=== PATIENT | female | born 1955 | race Caucasian/White ===

== ENCOUNTER 2017-10-11 05:55 | Inpatient (IN) | payer BC, OTHER ==
[2017-10-05 10:59] VITALS: BMI 45.3
[2017-10-11] MEDS ORDERED: CEFAZOLIN 2 GM/D5W 2 GM/50 ML ML IVPB ONE (06:19)
[2017-10-11] MEDS ORDERED: TRANEXAMIC ACID 1000 MG/10 ML VIAL IVPUSH ONE (06:19)
[2017-10-11] MEDS ORDERED: CELECOXIB 200 MG CAPSULE PO ONE (06:19)
[2017-10-11] MEDS ORDERED: oxyCODONE HCL 10 MG SUSTAINED ACTING TABLET PO ONE (06:19)
[2017-10-11] MEDS ORDERED: GABAPENTIN 300 MG CAPSULE (FP) PO ONE (06:19)
[2017-10-11] MEDS ORDERED: oxyCODONE HCL 10 MG SUSTAINED ACTING TABLET ONE (06:26)
[2017-10-11] MEDS ORDERED: CELECOXIB 200 MG CAPSULE ONE (06:26)
[2017-10-11] MEDS ORDERED: GABAPENTIN 300 MG CAPSULE (FP) ONE (06:26)
[2017-10-11] MEDS ORDERED: MIDAZOLAM HCL 2 MG/2 ML SINGLE DOSE VIAL ONE ×2 (07:03→07:05)
[2017-10-11] MEDS ORDERED: BUPIVACAINE LIPOSOME/PF (EXPAREL) 266 MG/20 ML VIAL ONE (07:04)
[2017-10-11] MEDS ORDERED: BUPIVACAINE HCL/PF 2.5 MG/ML - 30 ML VIAL IJ ONE (07:04)
[2017-10-11] MEDS ORDERED: ONDANSETRON 4 MG/2 ML VIAL ONE (07:05)
[2017-10-11] MEDS ORDERED: PROPOFOL 20 ML ONE ×4 (07:05→09:23)
[2017-10-11] MEDS ORDERED: SUCCINYLCHOLINE CHLORIDE 200 MG/10 ML VIAL ONE (07:05)
[2017-10-11] MEDS ORDERED: ePHEDrine SULFATE 50 MG/1 ML AMPULE ONE (07:05)
[2017-10-11] MEDS ORDERED: DEXAMETHASONE SOD PHOSPHATE 4 MG/1 ML VIAL ONE (07:06)
[2017-10-11] MEDS ORDERED: TRANEXAMIC ACID 1000 MG/10 ML VIAL ONE (07:06)
[2017-10-11] MEDS ORDERED: ceFAZolin SODIUM 1 GM VIAL ONE (07:09)
[2017-10-11] MEDS ORDERED: VANCOMYCIN 1,000 MG VIAL (RESTRICTED TO ID ONLY) ONE (07:10)
[2017-10-11] MEDS ORDERED: PHENYLEPHRINE HCL 10 MG/1 ML SINGLE DOSE VIAL ONE (07:22)
--- NOTE | 2017-10-11 07:51 | HP ---
Satellite [facility] - Chief Complaint Chief Complaint: right knee pain - Past Medical History Allergies/Adverse Reactions: Allergies Allergy/AdvReac Type Severity Reaction Status Date / Time No Known Drug Allergies Allergy Verified 10/11/17 06:17 Cardiovascular: Yes: HTN Pulmonary: Yes: Asthma Gastrointestinal: Yes: GERD, Other (Obesity, S/P gastric banding 7 years ago.) Endocrine: Yes: Hypothyroidism - Current Medications Current Medications: Home Medications Medication Instructions Recorded Albuterol Sulfate Inhaler - 1 - 2 inh PO QID PRN 12/27/14 [Ventolin HFA Inhaler -] Levothyroxine [Synthroid -] 125 mcg PO DAILY 10/05/17 Naproxen [Naprosyn] 500 mg PO BID 10/05/17 Olmesartan Medoxomil 20 mg PO DAILY 10/05/17 Satellite Physical Exam - Physical Examination Vital Signs: Vital Signs Period Temp Pulse Resp BP Sys/Mayes Pulse Ox Last 24 Hr 97.9 F 65 18 167/79 General Appearance: Well Nourished, Well Developed, Alert & Oriented x3, Obese ENT: Clear Lung: Normal air movement Heart: Regular rate & rhythm Extremities: Other (right knee- + swelling, + ttp, decr rom, nvi xrays show grade 4 tricompartmental djd) Neurological: Intact, Alert, Oriented Satellite Impression/Plan - Impression/Plan Impression: right knee djd Operative Procedure: right caitlyn tkr Date to be Performed: 10/11/17
[2017-10-11] MEDS ORDERED: VANCOMYCIN 1,000 MG VIAL (RESTRICTED TO ID ONLY) IVPB ONE (09:17)
[2017-10-11] MEDS ORDERED: ALBUTEROL SO4 18 GM HFA INHALER IH PRN (09:54)
[2017-10-11] MEDS ORDERED: ONDANSETRON 4 MG/2 ML VIAL IVPUSH PRN ×2 (09:55→11:06)
[2017-10-11] MEDS ORDERED: MAGNESIUM HYDROX 2400MG/30ML ORAL SUSPENSION 30 ML CUP PO PRN (09:55)
[2017-10-11] MEDS ORDERED: MAG HYDROX/AL HYDROX/SIMETH 30 ML UNIT-DOSE CUP PO PRN (09:55)
--- NOTE | 2017-10-11 09:57 | OP ---
Operative Note - Note: Operative Date: 10/11/17 ([place]) Pre-Operative Diagnosis: right knee djd Operation: right caitlyn tkr Post-Operative Diagnosis: Same as Pre-op Surgeon: Ole Campos Teacher Public Health: Colby Lopez) Anesthesiologist/BOAT PULLER: Miguel Escalante Anesthesia: Spinal, Local Specimens Removed: bone fragments Estimated Blood Loss (mls): 100 Operative Report Dictated: Yes
[2017-10-11] MEDS ORDERED: LACTATED RINGERS SOLUTION 1,000 ML IV SCH (10:00)
[2017-10-11] MEDS ORDERED: PATIENT'S OWN MEDICATION (NON-FORMULARY) (Olmesartan Medoxomil [Olmesartan Medoxomil] 20 M PO SCH (10:00)
--- NOTE | 2017-10-11 10:12 | SPEC ---
DATE OF OPERATION: 10/11/2017 PREOPERATIVE DIAGNOSIS: Degenerative joint disease, right knee. POSTOPERATIVE DIAGNOSIS: Degenerative joint disease, right knee. PROCEDURE: Right total knee replacement with robotic-assisted navigation (Makoplasty). SURGICAL ATTENDING: Servando Anderson M.D. BUTTONHOLER: Adalgisa Bruner ANESTHESIA: Regional and spinal. CLOSURE: A Triathlon cemented knee system with a 3 femur, 3 tibia, 11 polyethylene, 32 patella, number 1 Vicryl fascia, 0 and 2-0 subcutaneous, 3-0 Monocryl subcuticular with skin glue for skin, 4-0 undyed Vicryl for pin sites. ESTIMATED BLOOD LOSS: 100 mL COMPLICATIONS: None. CONDITION: To recovery room in stable condition. DESCRIPTION OF OPERATIVE PROCEDURE: Patient was taken to the operating room on October 11, 2017. Regional and general anesthesia was administered by the anesthesiologist. IV Kefzol and TXA were administered by the anesthesiologist. Well-padded pneumatic tourniquet was placed on the proximal thigh. The right lower extremity was prepped and draped in the usual sterile fashion. The leg was exsanguinated with an Esmarch bandage, and tourniquet was inflated to 275 mmHg. A 12 to 15-cm longitudinal midline incision was incised while centered over the patella. The dissection was carried down to the level of the extensor mechanism with sufficient flaps made to adequately perform the procedure. A medial parapatellar arthrotomy was then performed. We made a cuff of tissue on the patella for later closure. The patella was inverted, the knee was flexed up. The fat pad was excised. The subperiosteal dissection was on the anteromedial proximal tibia around towards the direction of the MCL. The ACL and the PCL were transected and debrided. The meniscal remnants of the medial and lateral meniscus were debrided and removed. This allowed the knee to be able to "be brought forward." The checkpoints were malleted into the tibia and into the femur. Two threaded pins were drilled anteroposteriorly proximal to the knee through the previous incision, through the anterior cortex, then just engaging the posterior cortex. To these pins was assembled the femoral navigation array. One handbreadth below the tibial tubercle, 2 stab incisions were used to drill 2 threaded pins in parallel fashion into the tibia, again through the anterior cortex and just engaging the posterior cortex. To these pins was fastened the tibial arrays. The knee was then registered with the navigation device with center of rotation of the hip, medial and lateral malleoli, both checkpoints, and multiple points on both the femur and the tibia to ensure excellent registration. The navigation device was directed off the "top of the bubbles" on both the femur and the tibia. The navigation passed within less than 0.5 mm to plan. The knee was then thoroughly inspected to remove all osteophytes both medially, laterally, and on the femur and the tibia, and whatever osteophytes were available for dissection. The knee was then taken to extension and to flexion, and stressed in both varus and valgus to assess flexion gaps. The virtual position of the components on the navigation device were then manipulated to optimize the position and to ensure equal gaps in both flexion and extension, and both medially and laterally. The robot was then brought into the field and was registered. The cuts were then made both on the femur and on the tibia as to plan. All osteophytes posteriorly were then removed as well. The gaps were then measured again in flexion and extension to be equal in both flexion and extension and medial and laterally. The femoral notch was then made, as we were doing a posterior stabilizing component, with the appropriate sized box. Trial reduction of the femur achieved excellent [id number] fit. A tibial baseplate of appropriate polyethylene thickness was "floated in the knee." It was ensured to be in the excellent position by navigation devices and was pinned in place. The knee was taken through a range of motion, and found to have excellent stability throughout flexion and extension. The patella was calibrated for thickness and osteotomized down to the appropriate level. The appropriate lollipop was used to drill the lug holes in the patella and the trial button was applied. The knee was taken through a range of motion and found to have excellent tracking of the patella, and patella from full extension to full flexion. Trial components were removed, the keel was punched and drilled, and a sclerotic bone on the tibia was drilled to help with cement interdigitation. The knee was thoroughly irrigated with the pulse antibiotic snowboard designer. The real components were then cemented in using monitored arrangement cement techniques with antibiotic cement, and pressurization and extension. After the cement was hardened, the knee was thoroughly inspected to remove any extra cement. The real polyethylene component was then clipped into place. Range of motion, stability, and tracking were as described earlier. The checkpoints and the pins were removed. The knee was thoroughly irrigated with antibiotic irrigation. Vancomycin powder was placed into the knee for antibiotic prophylaxis. The medial parapatellar arthrotomy was then closed using number 1 Vicryl interrupted suture. After closure of the deep layer, the knee was taken through a range of motion, and found to have excellent stability of the patella with no dislocation and no undue tension on the repair. The subcutaneous was pulse antibiotic irrigated, and was then closed with 2-0 Vicryl, 3-0 Monocryl subcuticular with the skin glue for the skin. The distal tibial pin site was irrigated thoroughly as well and then closed with 4-0 undyed Vicryl. A sterile Aquacel dressing was applied, followed by a Sosa dressing. Tourniquet was deflated. Total tourniquet time was approximately 75 minutes. No complications. Patient was awakened from anesthesia and transferred to recovery room in stable condition. Postoperative x-rays revealed excellent position of the components. Ayush [id number]
[2017-10-11] MEDS ORDERED: PROMETHAZINE HCL 25 MG/1 ML VIAL IVPUSH PRN (11:06)
[2017-10-11] MEDS ORDERED: oxyCODONE HCL 5 MG TABLET PO PRN (11:06)
[2017-10-11] MEDS ORDERED: ACETAMINOPHEN 325 MG TABLET (FP) PO SCH (12:15)
[2017-10-11] MEDS: ACETAMINOPHEN 325 MG TABLET (FP) PO SCH ×2 (12:45→19:50)
[2017-10-11] MEDS: CEFAZOLIN 2 GM/D5W 2 GM/50 ML ML IVPB SCH ×2 (15:45→23:05)
[2017-10-11] MEDS: oxyCODONE HCL 5 MG TABLET PO PRN ×3 (15:45→23:04)
[2017-10-11] MEDS: SENNOSIDES/DOCUSATE COMBO (SENNA PLUS) TABLET (UD) PO SCH (21:30)
[2017-10-11] MEDS: GABAPENTIN 300 MG CAPSULE (FP) PO SCH (21:31)
[2017-10-11] MEDS: oxyCODONE HCL 10 MG SUSTAINED ACTING TABLET PO SCH (21:31)
[2017-10-12] MEDS: ACETAMINOPHEN 325 MG TABLET (FP) PO SCH ×4 (04:15→22:08)
[2017-10-12] MEDS: LEVOTHYROXINE NA 125 MCG TABLET (FP) PO SCH (06:47)
--- NOTE | 2017-10-12 08:16 | PN ---
Progress Note (short form) - Note Progress Note: Ortho Pt seen and examined s/p right caitlyn tkr pod #1 Selected Entries 10/12/17 06:00 Temperature 98.0 F Pulse Rate 69 Respiratory 19 Rate Blood Pressure 166/80 dressing c/d/i, calf soft, nt rom 0-40, nvi cbc pending a/p PT dvt ppx pain control d/c home tomorrow if stable
[2017-10-12 08:49] LABS: HEMATOCRIT 34.4 % (32.4-45.2); HEMOGLOBIN 11.7 GM/dl (10.7-15.3); MCH 29.8 pg (25.7-33.7); MCHC 34.1 g/dl (32.0-36.0); MEAN CELL VOLUME 87.3 fl (80-96); MEAN PLT VOLUME 10.6 fl (7.5-11.1); PLATELET COUNT 191 K/MM3 (134-434); RBC 3.94 M/mm3 (3.60-5.2); RDW 14.2 % (11.6-15.6); WHITE BLOOD COUNT 14.8 K/mm3 (4.0-10.8)
[2017-10-12] MEDS: ASPIRIN 325 MG TABLET PO SCH (08:54)
[2017-10-12] MEDS: GABAPENTIN 300 MG CAPSULE (FP) PO SCH ×2 (09:55→22:09)
[2017-10-12] MEDS: PANTOPRAZOLE 40 MG TABLET (FP) PO SCH ×2 (09:55→10:00)
[2017-10-12] MEDS: SENNOSIDES/DOCUSATE COMBO (SENNA PLUS) TABLET (UD) PO SCH ×2 (09:55→22:08)
[2017-10-12] MEDS: oxyCODONE HCL 5 MG TABLET PO PRN ×2 (09:56→22:10)
[2017-10-12] MEDS: VALSARTAN 160 MG TABLET (UD) PO SCH (09:56)
[2017-10-12] MEDS: MULTIVITAMINS (DAILY MVI) TABLET (FP) PO SCH (09:56)
[2017-10-12] MEDS: oxyCODONE HCL 10 MG SUSTAINED ACTING TABLET PO SCH ×2 (09:57→22:09)
[2017-10-12] MEDS ORDERED: morphine CARPU-JECT 2 MG/1 ML DISP.SYRIN IVPUSH PRN (10:52)
--- NOTE | 2017-10-12 11:43 | PN ---
Progress Note, Physician Chief Complaint: s/p Right Total knee replacement with ROSS History of Present Illness: under spinal anesthesia with adductor canal and popliteal nerve block for post op pain control - Current Medication List Current Medications: Active Medications Acetaminophen (Tylenol -) 650 mg PO Q6H [facility] Stop: 10/14/17 19:59 Last Admin: 10/12/17 08:55 Dose: 650 mg Al Hydroxide/Mg Hydroxide (Mylanta Oral Suspension -) 30 ml PO Q4H PRN PRN Reason: DYSPEPSIA Albuterol Sulfate (Ventolin Hfa Inhaler -) 1 - 2 puff IH QID PRN PRN Reason: ASTHMA Aspirin (Asa -) 325 mg PO DAILY@0800 [facility] Last Admin: 10/12/17 08:54 Dose: 325 mg Gabapentin (Neurontin -) 300 mg PO BID [facility] Last Admin: 10/12/17 09:55 Dose: 300 mg Levothyroxine Sodium (Synthroid -) 125 mcg PO DAILY@0700 [facility] Last Admin: 10/12/17 06:47 Dose: 125 mcg Magnesium Hydroxide (Milk Of Magnesia -) 30 ml PO PRN PRN PRN Reason: CONSTIPATION Morphine Sulfate (Morphine Injection -) 2 mg IVPUSH Q4H PRN PRN Reason: PAIN LEVEL 6-10 Multivitamins/Minerals/Vitamin C (Tab-A-Vit -) 1 tab PO DAILY [facility] Last Admin: 10/12/17 09:56 Dose: 1 tab Ondansetron HCl (Zofran Injection) 4 mg IVPUSH Q6H PRN PRN Reason: NAUSEA Oxycodone HCl (Roxicodone -) 10 mg PO Q3H PRN PRN Reason: PAIN LEVEL 6-10 Last Admin: 10/12/17 09:56 Dose: 10 mg Oxycodone HCl (Roxicodone -) 5 mg PO Q3H PRN PRN Reason: PAIN LEVEL 1-5 Last Admin: 10/12/17 06:47 Dose: 5 mg Oxycodone HCl (Oxycontin -) 10 mg PO BID [facility] Last Admin: 10/12/17 09:57 Dose: 10 mg Pantoprazole Sodium (Protonix -) 40 mg PO DAILY [facility] Last Admin: 10/12/17 09:55 Dose: 40 mg Promethazine HCl (Phenergan Injection -) 12.5 mg IVPUSH Q6H PRN PRN Reason: NAUSEA-FOR RESCUE AFTER 15 MIN Senna/Docusate Sodium (Pericolace -) 2 tablet PO BID [facility] Last Admin: 10/12/17 09:55 Dose: 2 tablet Valsartan (Diovan -) 160 mg PO DAILY [facility] Last Admin: 10/12/17 09:56 Dose: 160 mg - Objective Vital Signs: Vital Signs Temperature 98.0 F 10/12/17 06:00 Pulse Rate 69 10/12/17 06:00 Respiratory Rate 18 10/12/17 07:58 Blood Pressure 166/80 10/12/17 06:00 O2 Sat by Pulse Oximetry (%) 98 10/12/17 07:58 Constitutional: Yes: Well Nourished Cardiovascular: Yes: WNL Respiratory: Yes: WNL Gastrointestinal: Yes: WNL Labs: CBC, BMP 10/12/17 08:00 Assessment/Plan No adverse effect of anesthetic, complaining of inadequate pain control mostly in the thigh, pain in the knee is controlled, no nausea or vomiting, added morphine 2mg ivp for breakthrough pain, no further intervention by the dept of anesthesia.
--- NOTE | 2017-10-12 13:08 | SPEC ---
DATE OF OPERATION: 10/11/2017 PREOPERATIVE DIAGNOSIS: Degenerative joint disease, right knee. POSTOPERATIVE DIAGNOSIS: Degenerative joint disease, right knee. PROCEDURE: Right total knee replacement with robotic-assisted navigation (Makoplasty). SURGICAL ATTENDING: Ole Campos MD JUVENILE COUNSELOR: Adalgisa Bruner SECOND SENIOR JAVA SOFTWARE ENGINEER: Servando Anderson MD ANESTHESIA: Regional and spinal. CLOSURE: A Triathlon cemented total knee system with a 3 femur, 3 tibia, 11 polyethylene, 32 patella, number 1 Vicryl fascia, 0 and 2-0 subcutaneous, 3-0 Monocryl subcuticular with skin glue for skin, 4-0 undyed Vicryl for pin sites. ESTIMATED BLOOD LOSS: Negligible. COMPLICATIONS: None. CONDITION: To recovery room in stable condition. DESCRIPTION OF OPERATIVE PROCEDURE: Patient was taken to the operating room on October 11, 2017. Regional and general anesthesia was administered by the anesthesiologist. IV Kefzol and TXA were administered by the anesthesiologist. Well-padded pneumatic tourniquet was placed on the proximal thigh. The right lower extremity was prepped and draped in the usual sterile fashion. The leg was exsanguinated with an Esmarch bandage, and tourniquet was inflated to 275 mmHg. A 12 to 15-cm longitudinal midline incision was incised while centered over the patella. The dissection was carried down to the level of the extensor mechanism with sufficient flaps made to adequately perform the procedure. A medial parapatellar arthrotomy was then performed. We made a cuff of tissue on the patella for later closure. The patella was inverted, the knee was flexed up. The fat pad was excised. The subperiosteal dissection was on the anteromedial proximal tibia around towards the direction of the MCL. The ACL and the PCL were transected and debrided. The meniscal remnants of the medial and lateral meniscus were debrided and removed. This allowed the knee to be able to "be brought forward." The checkpoints were malleted into the tibia and into the femur. Two threaded pins were drilled anteroposteriorly proximal to the knee through the previous incision, through the anterior cortex, then just engaging the posterior cortex. To these pins was assembled the femoral navigation array. One handbreadth below the tibial tubercle, 2 stab incisions were used to drill 2 threaded pins in parallel fashion into the tibia, again through the anterior cortex and just engaging the posterior cortex. To these pins was fastened the tibial arrays. The knee was then registered with the navigation device with center of rotation of the hip, medial and lateral malleoli, both checkpoints, and multiple points on both the femur and the tibia to ensure excellent registration. The navigation device was directed off the "top of the bubbles" on both the femur and the tibia. The navigation passed within less than 0.5 mm to plan. The knee was then thoroughly inspected to remove all osteophytes both medially, laterally, and on the femur and the tibia, and whatever osteophytes were available for dissection. The knee was then taken to extension and to flexion, and stressed in both varus and valgus to assess flexion gaps. The virtual position of the components on the navigation device were then manipulated to optimize the position and to ensure equal gaps in both flexion and extension, and both medially and laterally. The robot was then brought into the field and was registered. The cuts were then made both on the femur and on the tibia as to plan. All osteophytes posteriorly were then removed as well. The gaps were then measured again in flexion and extension to be equal in both flexion and extension and medial and laterally. The femoral notch was then made, as we were doing a posterior stabilizing component, with the appropriate sized box. Trial reduction of the femur achieved excellent [id number]-[id number] fit. A tibial baseplate of appropriate polyethylene thickness was "floated in the knee." It was ensured to be in the excellent position by navigation devices and was pinned in place. The knee was taken through a range of motion, and found to have excellent stability throughout flexion and extension. The patella was calibrated for thickness and osteotomized down to the appropriate level. The appropriate lollipop was used to drill the lug holes in the patella and the trial button was applied. The knee was taken through a range of motion and found to have excellent tracking of the patella, and patella from full extension to full flexion. Trial components were removed, the keel was punched and drilled, and a sclerotic bone on the tibia was drilled to help with cement interdigitation. The knee was thoroughly irrigated with the pulse antibiotic [place] sheriff. The real components were then cemented in using monitored arrangement cement techniques with antibiotic cement, and pressurization and extension. After the cement was hardened, the knee was thoroughly inspected to remove any extra cement. The real polyethylene component was then clipped into place. Range of motion, stability, and tracking were as described earlier. The checkpoints and the pins were removed. The knee was thoroughly irrigated with antibiotic irrigation. Vancomycin powder was placed into the knee for antibiotic prophylaxis. The medial parapatellar arthrotomy was then closed using number 1 Vicryl interrupted suture. After closure of the deep layer, the knee was taken through a range of motion, and found to have excellent stability of the patella with no dislocation and no undue tension on the repair. The subcutaneous was pulse antibiotic irrigated, and was then closed with 2-0 Vicryl, 3-0 Monocryl subcuticular with the skin glue for the skin. The distal tibial pin site was irrigated thoroughly as well and then closed with 4-0 undyed Vicryl. A sterile Aquacel dressing was applied, followed by a Sosa dressing. Tourniquet was deflated. Total tourniquet time was approximately 75 minutes. No complications. Patient was awakened from anesthesia and transferred to recovery room in stable condition. Postoperative x-rays revealed excellent position of the components. Servando Anderson MD dictating for MD OLE Yañez M.D. [id number]
[2017-10-13] MEDS: ACETAMINOPHEN 325 MG TABLET (FP) PO SCH ×2 (05:21→07:56)
[2017-10-13] MEDS: oxyCODONE HCL 5 MG TABLET PO PRN (06:43)
[2017-10-13] MEDS: LEVOTHYROXINE NA 125 MCG TABLET (FP) PO SCH (06:43)
[2017-10-13 06:52] VITALS: BP 111/43; PULSE 70; TEMP 98.2
[2017-10-13] MEDS: ASPIRIN 325 MG TABLET PO SCH (07:56)
--- NOTE | 2017-10-13 08:26 | DS ---
Physical Examination Vital Signs: Vital Signs Temperature 98.2 F 10/13/17 06:19 Pulse Rate 70 10/13/17 06:19 Respiratory Rate 18 10/13/17 06:19 Blood Pressure 111/43 10/13/17 06:19 O2 Sat by Pulse Oximetry (%) 99 10/13/17 06:19 Discharge Summary Reason For Visit: OSTEOARTHRITIS Procedures: Principal: s/p left caitlyn tkr Hospital Course: admitted for elective left caitlyn tkr, uneventful post-op, stable for d/c Condition: Good - Instructions Diet, Activity, Other Instructions: Post-op Instructions-Total Knee Replacement Call the office for a follow-up appointment in 1 week - [phone] Aspirin 325mg daily for 6 weeks. Pain medication was sent into your pharmacy. Apply Graduated Compression Stockings (TEDs) to both lower extremities- remove daily for hygiene ONLY Apply Sequential Compression Device (SCDs) to both Lower extremities remove for PT and hygiene ONLY Apply cold packs to affected area for 15 minutes every 2 hours. Physical Therapist will come to your home for the first 5 days. You will be set up with outpatient PT at your first post-operative visit. Patient may ambulate as tolerated-encourage self care (at least every 2-3 hours while awake) with walker or cane Maintain Aquacel (waterproof) dressing to operative wound (will be removed by surgeon at first office visit) Shower with Aquacel dressing in place-if Aquacel integrity compromised, remove and apply dry sterile dressing and notify Orthopedist. DO NOT SHOWER unless Orthopedists approves without Aquacel dressing CONTACT THE OFFICE FOR ANY CHANGE IN YOUR CONDITION (for example-fever greater than 102 degrees, excessive bleeding from operative site, purulent drainage, severe swelling or pain) GO TO THE EMERGENCY ROOM IF THERE IS A MEDICAL EMERGENCY Knee Precautions: * Keep a rolled towel under affected heel while in bed or chair (to keep knee in extension) * Keep affected leg elevated except during mealtimes * DO NOT PLACE PILLOW UNDER AFFECTED KNEE * If you have any questions, please do not hesitate to call the office - [phone]. Referrals: Servando Anderson MD [Staff Physician] - Disposition: VNS/HOME HEALTH CARE - Home Medications Comprehensive Discharge Medication List: Ambulatory Orders Albuterol Sulfate Inhaler - [Ventolin HFA Inhaler -] 1 - 2 inh PO QID PRN Levothyroxine [Synthroid -] 125 mcg PO DAILY 10/05/17 Naproxen [Naprosyn] 500 mg PO BID 10/05/17 Olmesartan Medoxomil 20 mg PO DAILY 10/05/17 Aspirin [ASA -] 325 mg PO DAILY@0800 tablet 10/11/17 Oxycodone HCl/Acetaminophen [Percocet 5-325 mg Tablet] 1 - 2 tab PO Q6H #50 tab MDD 8 10/11/17
--- NOTE | 2017-10-13 08:26 | PN ---
Progress Note (short form) - Note Progress Note: Ortho Pt seen and examined s/p right caitlyn tkr pod #2 Selected Entries 10/13/17 06:19 Temperature 98.2 F Pulse Rate 70 Respiratory 18 Rate Blood Pressure 111/43 Laboratory Tests 10/12/17 08:00 WBC 14.8 H Hgb 11.7 D Hct 34.4 Plt Count 191 dressing c/d/i, calf soft, nt rom 0-40, nvi a/p PT dvt ppx pain control d/c home today f/u in 1 week
[2017-10-13 08:28] LABS: HEMATOCRIT 32.1 % (32.4-45.2); HEMOGLOBIN 11.1 GM/dl (10.7-15.3); MCH 30.5 pg (25.7-33.7); MCHC 34.8 g/dl (32.0-36.0); MEAN CELL VOLUME 87.9 fl (80-96); MEAN PLT VOLUME 10.7 fl (7.5-11.1); PLATELET COUNT 158 K/MM3 (134-434); RBC 3.65 M/mm3 (3.60-5.2); RDW 14.2 % (11.6-15.6); WHITE BLOOD COUNT 14.6 K/mm3 (4.0-10.8)
[2017-10-13] MEDS: SENNOSIDES/DOCUSATE COMBO (SENNA PLUS) TABLET (UD) PO SCH (10:29)
[2017-10-13] MEDS: MULTIVITAMINS (DAILY MVI) TABLET (FP) PO SCH (10:30)
[2017-10-13] MEDS: VALSARTAN 160 MG TABLET (UD) PO SCH (10:31)
[2017-10-13] MEDS: oxyCODONE HCL 10 MG SUSTAINED ACTING TABLET PO SCH (10:31)
[2017-10-13] MEDS: PANTOPRAZOLE 40 MG TABLET (FP) PO SCH (10:31)
[2017-10-13] MEDS: GABAPENTIN 300 MG CAPSULE (FP) PO SCH (10:31)
--- NOTE | 2017-10-16 19:16 | PATH ---
Surgical Pathology Report Patient Name: CORBIN NUNN Med. Rec. #: [id number] /Age/Gender: 1955 (Age: 62) / F Account: [id number] Location: [facility] MED-SURG Taken: 10/11/2017 Received: 10/11/2017 Reported: 10/16/2017 Physicians: Ole Campos M.D. Specimen(s) Received RIGHT KNEE BONES Clinical History Right knee osteoarthritis Final Diagnosis KNEE BONES, RIGHT, TOTAL KNEE REPLACEMENT: DEGENERATIVE JOINT DISEASE. Electronically Signed Orquidea Luna M.D. Gross Description Received in formalin labeled "right knee bones," is a 10.0 x 9.5 x 1.5 cm aggregate of multiple irregular portions of bone, consistent with knee bones. There is a 2 cm in greatest dimension area of eburnation identified. The remaining articular surfaces are jensen-yellow and diffusely granular. The underlying trabecular bone is yellow and hard. Engineer Technical Staff sections are submitted in one cassette, following decalcification. /10/12/2017 [facility]10/12/2017
== END 2017-10-13 13:00 | disposition home health service (06) | DRG 470 ==
LOC: FM/S 05:55
PROVIDERS: ADMIT Orthopaedic Surgery; ATTEND Orthopaedic Surgery
PROC: 8E0YXCZ Robotic Assisted Procedure of Lower Extremity (ICD-10-PCS; 2017-10-11)
PROC: 0SRC069 Replacement of Right Knee Joint with Oxidized Zirconium on Polyethylene Synthetic Substitute, Cemented, Open Approach (ICD-10-PCS; principal; 2017-10-11 07:55)
DX: M17.11 Unilateral primary osteoarthritis, right knee (principal); Z68.42 Body mass index [BMI] 45.0-49.9, adult; I10 Essential (primary) hypertension; J45.909 Unspecified asthma, uncomplicated; K21.9 Gastro-esophageal reflux disease without esophagitis; E66.9 Obesity, unspecified; E03.9 Hypothyroidism, unspecified; Z98.84 Bariatric surgery status
CPT/HCPCS: 36415; 73560-TC-RT-FY; 85027; 88304-TC; 88311-TC; 94010; 94760; 97116-GP; 97162-GP

== ENCOUNTER 2017-10-27 17:52 | Observation (INO) | payer OTHER ==
--- NOTE | 2017-10-27 18:02 | PDOC ---
Rapid Medical Evaluation Time Seen by Provider: 10/27/17 17:58 Medical Evaluation: Allergies Allergy/AdvReac Type Severity Reaction Status Date / Time No Known Drug Allergies Allergy Verified 10/27/17 17:58 10/27/17 17:58 Pt c/o: rt tkr 2 weeks ago, leg swollen and red x 4 days, dr. castillo did surgery, no fever, no drainage Pt on brief exam: noted diffuse edema and redness Pt ordered for: cbc, comp, duplex Pt tp proceed to the ED Discharge Disposition - Diagnosis Right leg swelling - Referrals Referrals: Diego Valdivia MD [Primary Care Provider] - - Patient Instructions - Post Discharge Activity
[2017-10-27 18:28] LABS: BASO % 0.7 % (0-2.0); EOS % 2.4 % (0-4.5); HEMATOCRIT 33.1 % (32.4-45.2); HEMOGLOBIN 11.2 GM/dL (10.7-15.3); LYMPH % 35.4 % (8-40); MCH 29.7 pg (25.7-33.7); MCHC 33.7 g/dl (32.0-36.0); MEAN CELL VOLUME 88.2 fl (80-96); MEAN PLT VOLUME 9.7 fl (7.5-11.1); MONO % 9.4 % (3.8-10.2); NEUT % 52.1 % (42.8-82.8); PLATELET COUNT 323 K/MM3 (134-434); RBC 3.76 M/mm3 (3.60-5.2); RDW 14.9 % (11.6-15.6); WHITE BLOOD COUNT 9.1 K/mm3 (4.0-10.0)
[2017-10-27 19:34] LABS: ALBUMIN 3.7 g/dl (3.4-5.0); ALK PHOS 114 U/L (45-117); ANION GAP 10 (8-16); BILIRUBIN,TOTAL 0.3 mg/dL (0.2-1.0); BLOOD UREA NITROGEN 19 mg/dL (7-18); CALCIUM 9.2 mg/dL (8.5-10.1); CHLORIDE 106 mmol/L (98-107); CO2 26 mmol/L (21-32); CREATININE 0.9 mg/dL (0.55-1.02); GLUCOSE,RANDOM 116 mg/dL (74-106); POTASSIUM 3.9 mmol/L (3.5-5.1); SGOT/AST 15 U/L (15-37); SGPT/ALT 15 U/L (12-78); SODIUM 142 mmol/L (136-145); TOT PROT 7.5 g/dl (6.4-8.2)
--- NOTE | 2017-10-27 19:36 | PDOC ---
Attending Attestation - HPI HPI: 10/27/17 19:37 The patient is a 62 year old female with a significant PMH of recent right TKR ( 10/11/17), asthma, HTN, and hypothyroidism who presents to the emergency department with RLE swelling and erythema beginning approximately 4 days ago. The patient states Dr. Anderson conducted the TKR. She reports being in physical therapy and being told by her therapist to present to the ED for evaluation. The patient denies fevers or chills. She denies drainage or discharge. Allergies: NKDA PCP: Dr. Valdivia Ortho: Dr. Anderson <Vicente Archuleta - Last Filed: 10/27/17 19:37> - Resident Resident Name: Mo Silva - ED Attending Attestation I have performed the following: I have examined & evaluated the patient, The case was reviewed & discussed with the resident, I agree w/resident's findings & plan, Exceptions are as noted - Physicial Exam PE: 10/27/17 22:06 *Physical Exam General Appearance: Yes: Appropriately Dressed. No: Apparent Distress, Intoxicated HEENT: positive: EOMI, DES, Normal ENT Inspection, Normal Voice, TMs Normal, Pharynx Normal. negative: Pale Conjunctivae, Photophobia, Scleral Icterus (R), Scleral Icterus (L) Neck: positive: Trachea midline, Normal Thyroid, Supple. negative: Tender, Rigid, Carotid bruit, Stridor, Lymphadenopathy (R), Lymphadenopathy (L), Thyromegaly Respiratory/Chest: positive: Lungs Clear, Normal Breath Sounds. negative: Chest Tender, Respiratory Distress, Accessory Muscle Use, Labored Respiration, RES, Crackles, Rales, Rhonchi, Stridor, Wheezing, Dullness Cardiovascular: positive: Regular Rhythm, Regular Rate, S1, S2. negative: Edema , JVD, Murmur, Bradycardia, Tachycardia Vascular Pulses: Dorsalis-Pedis (R): 2+, Doralis-Pedis (L): 2+ Gastrointestinal/Abdominal: positive: Normal Bowel Sounds, Flat, Soft. negative : Tender, Organomegaly, Pulsatile Mass, Increased Bowel Sounds, Decreased BS, Distended, Guarding, Rebound, Hernia, Hepatomegaly, Spleenomegaly Lymphatic: negative: Adenopathy, Tenderness Musculoskeletal: positive: Normal Inspection. negative: CVA Tenderness, Decreased Range of Motion Extremity: positive: Normal Capillary Refill, Normal Inspection, Normal Range of Motion, Pelvis Stable. right knee surgical wound midline erythematous Integumentary: positive: Normal Color, Dry, Warm. negative: Cyanotic, Erythema , Jaundice, Rash Neurologic: positive: quality assurance calibrator II-XII NML intact, Fully Oriented, Alert, Normal Mood/ Affect, Motor Strength 5/5. negative: EOM Palsy, Facial Droop, Sensory Deficit - Medical Decision Making 10/27/17 22:08 Pt to be admitted for IV Abx. <Sarmad Mayers - Last Filed: 10/27/17 22:08>
[2017-10-27] MEDS ORDERED: VANCOMYCIN 1,000 MG in DEXTROSE 5%-WATER - 250 ML IVPB ONE (19:47)
--- NOTE | 2017-10-27 19:47 | PDOC ---
History of Present Illness - General Chief Complaint: Edema Stated Complaint: PCP SENT/RT LEG PAIN Time Seen by Provider: 10/27/17 17:58 History Source: Patient Exam Limitations: No Limitations - History of Present Illness Initial Comments: 10/27/17 19:41 Patient is a 62F with history of HTN, hypothyroidism total knee replacement on , cholecystectomy here today complaining of leg erythema and swelling. Patient states that she was sent to the ED by her physical therapist due to erythema and swelling in her right leg. Patient states that there was been increasing warmth and erythema around the wound for the past three days. Denies fevers, chills, nausea, vomiting. Denies history of blood clots. Denies chest pain and shortness of breath. Past History - Past Medical History Allergies/Adverse Reactions: Allergies Allergy/AdvReac Type Severity Reaction Status Date / Time No Known Drug Allergies Allergy Verified 10/27/17 17:58 Home Medications: Ambulatory Orders Albuterol Sulfate Inhaler - [Ventolin HFA Inhaler -] 1 - 2 inh PO QID PRN Levothyroxine [Synthroid -] 125 mcg PO DAILY 10/05/17 Aspirin [ASA -] 325 mg PO DAILY@0800 tablet 10/11/17 Oxycodone HCl/Acetaminophen [Percocet 5-325 mg Tablet] 1 - 2 tab PO Q6H #50 tab MDD 8 10/11/17 Anemia: No Asthma: Yes (DX CHILD) Cancer: No Cardiac Disorders: No CVA: No COPD: No CHF: No Dementia: No Diabetes: No GI Disorders: Yes (GERD, ULCERS) Disorders: No HTN: Yes (DX 2011-NOW OFF MEDS) Hypercholesterolemia: No Liver Disease: No Seizures: No Thyroid Disease: Yes (HYPOTHYROIDISM- DX 2004) - Surgical History Abdominal Surgery: Yes (LAP BAND-2002) Appendectomy: No Cardiac Surgery: No Cholecystectomy: Yes (OPEN-1974) Lung Surgery: No Neurologic Surgery: No Orthopedic Surgery: Yes (RIGHT KNEE ARTHROSOCPY-1999) - Suicide/Smoking/Psychosocial Hx Smoking Status: No Smoking History: Never smoked Have you smoked in the past 12 months: No Number of Cigarettes Smoked Daily: 0 Hx Alcohol Use: No Drug/Substance Use Hx: No Substance Use Type: None Hx Substance Use Treatment: No Review of Systems - Review of Systems Comments:: 10/27/17 19:52 GENERAL/CONSTITUTIONAL: No fever or chills. HEAD, EYES, EARS, NOSE AND THROAT: No change in vision. No sore throat. CARDIOVASCULAR: No chest pain or shortness of breath RESPIRATORY: No cough, wheezing, or hemoptysis. GASTROINTESTINAL: No nausea, vomiting, diarrhea or constipation. GENITOURINARY: No dysuria, frequency, or change in urination. MUSCULOSKELETAL: Positive for right knee pain and swelling. SKIN: Erythema and warmth around leg wound NEUROLOGIC: No headache, vertigo, loss of consciousness, or change in strength/ sensation. ENDOCRINE: No increased thirst. No abnormal weight change HEMATOLOGIC/LYMPHATIC: No anemia, easy bleeding, or history of blood clots. ALLERGIC/IMMUNOLOGIC: No hives or skin allergy. *Physical Exam - Vital Signs Last Vital Signs Temp Pulse Resp BP Pulse Ox 98.4 F 75 24 146/78 95 10/27/17 17:58 10/27/17 17:58 10/27/17 17:58 10/27/17 17:58 10/27/17 17:58 - Physical Exam Comments: 10/27/17 19:54 GENERAL: Awake, alert, and fully oriented, in no acute distress R LEG: Linear surgical wound with surrounding erythema. No discharge or obvious dehiscence. HEAD: No signs of trauma, normocephalic, atraumatic EYES: PERRLA, EOMI, sclera anicteric, conjunctiva clear ENT: Auricles normal inspection, hearing grossly normal, nares patent, oropharynx clear without exudates. Moist mucosa NECK: Normal ROM, supple, no lymphadenopathy, JVD, or masses LUNGS: No distress, speaks full sentences, clear to auscultation bilaterally HEART: Regular rate and rhythm, normal S1 and S2, no murmurs, rubs or gallops, peripheral pulses normal and equal bilaterally. NEUROLOGICAL: Cranial nerves II through XII grossly intact. Normal speech, no focal sensorimotor deficits SKIN: Warm, Dry, normal turgor, no rashes or lesions noted. ED Treatment Course - LABORATORY CBC & Chemistry Diagram: 10/27/17 18:15 10/27/17 18:15 - ADDITIONAL ORDERS Additional order review: Laboratory Results 10/27/17 18:15 Sodium 142 Potassium 3.9 Chloride 106 Carbon Dioxide 26 Anion Gap 10 BUN 19 H Creatinine 0.9 Creat Clearance w eGFR > 60 Random Glucose 116 H Calcium 9.2 Total Bilirubin 0.3 AST 15 ALT 15 Alkaline Phosphatase 114 Total Protein 7.5 Albumin 3.7 10/27/17 18:15 RBC 3.76 MCV 88.2 MCHC 33.7 RDW 14.9 MPV 9.7 Neutrophils % 52.1 D Lymphocytes % 35.4 D Monocytes % 9.4 Eosinophils % 2.4 D Basophils % 0.7 D Medical Decision Making - Medical Decision Making 10/27/17 19:55 Patient is a 62F with history of HTN, TKR, cholecystitis, and hypothyroidism here today with leg edema and erythema. Vital signs stable and normal. DDx is weighted towards DVT and wound cellulitis. DVT US shows no clot. No white count on labs. Dr Anderson notified. Dr Valdivia accepted for admission. Patient admitted through [facility]. *DC/Admit/Observation/Transfer Diagnosis at time of Disposition: Wound cellulitis - Discharge Dispostion Condition at time of disposition: Stable Decision to Admit order: Yes - Referrals Referrals: Diego Valdivia MD [Primary Care Provider] - - Patient Instructions - Post Discharge Activity
[2017-10-27] MEDS ORDERED: CEFEPIME HCL/D5W 2 GM/50 ML BAG IVPB ONE (19:57)
[2017-10-27] MEDS ORDERED: VANCOMYCIN 1 GRAM (PRE-DOCKED) 1,000 MG/250 ML BAG IVPB ONE (20:03)
[2017-10-27] MEDS ORDERED: CEFEPIME 2 GM/100 ML BAG IVPB ONE (20:04)
--- NOTE | 2017-10-27 21:26 | HP ---
CHIEF COMPLAINT: right knee redness and swelling PCP: Shea HISTORY OF PRESENT ILLNESS: This is a 62 year old female with a past medical history significant for R TKR who presented to the ED with swelling and redness to LRLE. Pt states the redness started 3 days ago and she has not been able to wear her MICHELLE stocking as it no longer fits. ER course was notable for: (1) US neg for DVT Recent Travel: pt denies PAST MEDICAL HISTORY: HTN (off meds), hyopthyroid, asthma, GERD PAST SURGICAL HISTORY: R TKR 10/11/17 R knee arthroscopy 1999 choecystectomy lap band 2002 Social History: Smoking: pt denies Alcohol: rarely, last drank 6 mo ago Drugs: pt denies Family History: mother alive and well father s/p heart valve replacement sister with leukemia Allergies No Known Drug Allergies Allergy (Verified 10/27/17 17:58) HOME MEDICATIONS: 3 Medication Instructions Recorded Albuterol Sulfate Inhaler - 1 - 2 inh PO QID PRN 12/27/14 [Ventolin HFA Inhaler -] Levothyroxine [Synthroid -] 125 mcg PO DAILY 10/05/17 Aspirin [ASA -] 325 mg PO DAILY@0800 tablet 10/11/17 Oxycodone HCl/Acetaminophen 1 - 2 tab PO Q6H #50 tab MDD 8 10/11/17 [Percocet 5-325 mg Tablet] REVIEW OF SYSTEMS CONSTITUTIONAL: Absent: fever, chills, diaphoresis, generalized weakness, malaise, loss of appetite, weight change HEENT: Absent: rhinorrhea, nasal congestion, throat pain, throat swelling, difficulty swallowing, mouth swelling, ear pain, eye pain, visual changes CARDIOVASCULAR: Absent: chest pain, syncope, palpitations, irregular heart rate, lightheadedness , peripheral edema RESPIRATORY: Absent: cough, shortness of breath, dyspnea with exertion, orthopnea, wheezing, stridor, hemoptysis GASTROINTESTINAL: Absent: abdominal pain, abdominal distension, nausea, vomiting, diarrhea, constipation, melena, hematochezia GENITOURINARY: Absent: dysuria, frequency, urgency, hesitancy, hematuria, flank pain, genital pain MUSCULOSKELETAL: Absent: myalgia, arthralgia, joint swelling, back pain, neck pain SKIN: Present: redness and swelling to LLE Absent: rash, itching, pallor HEMATOLOGIC/IMMUNOLOGIC: Absent: easy bleeding, easy bruising, lymphadenopathy, frequent infections ENDOCRINE: Absent: unexplained weight gain, unexplained weight loss, heat intolerance, cold intolerance NEUROLOGIC: Absent: headache, focal weakness or paresthesias, dizziness, unsteady gait, seizure, mental status changes, bladder or bowel incontinence PSYCHIATRIC: Absent: anxiety, depression, suicidal or homicidal ideation, hallucinations. PHYSICAL EXAMINATION Vital Signs - 24 hr 3 10/27/17 17:58 Temperature 98.4 F Pulse Rate 75 Respiratory 24 Rate Blood Pressure 146/78 O2 Sat by Pulse 95 Oximetry (%) GENERAL: Awake, alert, and fully oriented, in no acute distress. HEAD: Normal with no signs of trauma. EYES: Pupils equal, round and reactive to light, extraocular movements intact, sclera anicteric, conjunctiva clear. No lid lag. EARS, NOSE, THROAT: Ears normal, nares patent, oropharynx clear without exudates. Moist mucous membranes. NECK: Normal range of motion, supple without lymphadenopathy, JVD, or masses. LUNGS: Breath sounds equal, clear to auscultation bilaterally. No wheezes, and no crackles. No accessory muscle use. HEART: Regular rate and rhythm, normal S1 and S2 without murmur, rub or gallop. ABDOMEN: Soft, nontender, not distended, normoactive bowel sounds, no guarding, no rebound, no masses. No hepatomegaly or splenomegaly. MUSCULOSKELETAL: Normal range of motion at all joints. No bony deformities or tenderness. No CVA tenderness. UPPER EXTREMITIES: 2+ pulses, warm, well-perfused. No cyanosis. No clubbing. No peripheral edema. LOWER EXTREMITIES: 2+ pulses, warm, well-perfused. No calf tenderness. No peripheral edema left. RLE with redness surrounding incision and to mckeon. Right medial calf with 1+ edema NEUROLOGICAL: Cranial nerves II-XII intact. Normal speech. Gait not observed PSYCHIATRIC: Cooperative. Good eye contact. Appropriate mood and affect. SKIN: Warm, dry, normal turgor, no rashes or lesions noted, normal capillary refill. Laboratory Results - last 24 hr 3 10/27/17 10/27/17 18:15 18:15 WBC 9.1 D RBC 3.76 Hgb 11.2 Hct 33.1 MCV 88.2 MCH 29.7 MCHC 33.7 RDW 14.9 Plt Count 323 D MPV 9.7 Neutrophils % 52.1 D Lymphocytes % 35.4 D Monocytes % 9.4 Eosinophils % 2.4 D Basophils % 0.7 D Sodium 142 Potassium 3.9 Chloride 106 Carbon Dioxide 26 Anion Gap 10 BUN 19 H Creatinine 0.9 Creat Clearance w eGFR > 60 Random Glucose 116 H Calcium 9.2 Total Bilirubin 0.3 AST 15 ALT 15 Alkaline Phosphatase 114 Total Protein 7.5 Albumin 3.7 Radiology Reports CXR Impression: No definite interval change from 10/03/2014 chest x-ray. No evidence of acute infiltrate or pleural effusion. Reported By: Seble Bui DO 10/27/172137 Duplex venous L leg IMPRESSION: No evidence of right lower extremity deep vein thrombosis, as above. Reported By: Seble Bui DO 10/27/171926 ASSESSMENT/PLAN: 62yF with PMH HTN, hypothyroid, asthma, GERD presented to the ED with right lower leg erythema and swelling. cellulitis RLE - given vanc and cefepime - ID consult - ortho consult, r/o septic joint in fresh post op pt. - follow blood cultures - monitor CBC HTN - cont to monitor off meds for now, BP slightly elevated hypothyroid - cont synthroid asthma - asymptomatic at present, cont proventil HFA PRN DVT PPX - heparin 5000u BID FEN - tolerating po - BMP boo - low sodium diet as tolerated Dispo: pt requires further inpatient management of emergent condition. Visit type - Emergency Visit Emergency Visit: Yes ED Registration Date: 10/27/17 Care time: The patient presented to the Emergency Department on the above date and was hospitalized for further evaluation of their emergent condition. - New Patient This patient is new to me today: Yes Date on this admission: 10/27/17 - Critical Care Critical Care patient: No Hospitalist Screening - Colonoscopy Questionnaire Colonoscopy Questionnaire: Colonoscopy Questionnaire - Patient: 50 - 75 years old and never had a screening colonoscopy: Unknown History of colon or rectal polyps, or CA: No History of IBD, Crohn's disease or UC: No History of abdominal radiation therapy as a child: No - Relative: 1 with colon or rectal CA, or polyps at age 60 or younger: No Colon or rectal CA diagnosed at age 45 or younger: No Multiple relatives with colon or rectal CA: No - Outcome: Screening Result: Negative Screen
[2017-10-27] MEDS ORDERED: ALBUTEROL SO4 18 GM HFA INHALER IH PRN (21:28)
[2017-10-27] MEDS ORDERED: oxyCODONE HCL 5 MG TABLET PO PRN (21:35)
[2017-10-27] MEDS ORDERED: ACETAMINOPHEN 325 MG TABLET (FP) PO PRN (21:36)
[2017-10-28 02:13] VITALS: BMI 46.8
[2017-10-28] MEDS ORDERED: LEVOTHYROXINE NA 125 MCG TABLET (FP) PO SCH (07:00)
[2017-10-28] MEDS ORDERED: ASPIRIN 325 MG TABLET PO SCH (08:00)
--- NOTE | 2017-10-28 08:54 | CONSULT ---
Consult - text type - Consultation Consultation Note: FULL CONSULT DICTATED IMP: NORMAL POST TKR KNEE PAIN AND SWELLING PLAN: DC TO HOME WITH NO ABX, CONTINUE PT, F/U OUTPATIENT
[2017-10-28 08:55] LABS: BASO % 0.9 % (0-2.0); EOS % 3.3 % (0-4.5); HEMATOCRIT 29.6 % (32.4-45.2); HEMOGLOBIN 9.8 GM/dL (10.7-15.3); LYMPH % 39.3 % (8-40); MCH 29.2 pg (25.7-33.7); MCHC 33.2 g/dl (32.0-36.0); MEAN CELL VOLUME 87.9 fl (80-96); MEAN PLT VOLUME 9.8 fl (7.5-11.1); MONO % 11.1 % (3.8-10.2); NEUT % 45.4 % (42.8-82.8); PLATELET COUNT 264 K/MM3 (134-434); RBC 3.37 M/mm3 (3.60-5.2); RDW 15.1 % (11.6-15.6); WHITE BLOOD COUNT 7.2 K/mm3 (4.0-10.0)
[2017-10-28 09:22] LABS: ANION GAP 6 (8-16); BLOOD UREA NITROGEN 16 mg/dL (7-18); CALCIUM 8.2 mg/dL (8.5-10.1); CHLORIDE 109 mmol/L (98-107); CO2 28 mmol/L (21-32); CREATININE 0.7 mg/dL (0.55-1.02); GLUCOSE,RANDOM 81 mg/dL (74-106); MAGNESIUM 2.3 mg/dL (1.8-2.4); PHOSPHOROUS 3.6 mg/dL (2.5-4.9); POTASSIUM 4.2 mmol/L (3.5-5.1); SODIUM 143 mmol/L (136-145)
--- NOTE | 2017-10-28 09:38 | EKG ---
Test Reason : Blood Pressure : / mmHG Vent. Rate : 064 BPM Atrial Rate : 064 BPM P-R Int : 000 ms QRS Dur : 076 ms QT Int : 422 ms P-R-T Axes : -23 034 025 degrees QTc Int : 435 ms NORMAL SINUS RHYTHM NORMAL ECG WHEN COMPARED WITH ECG OF 15-JUN-2012 18:49, NO SIGNIFICANT CHANGE WAS FOUND Confirmed by JEREMÍAS ORANTES MD ([id number]) on 10/28/2017 9:38:23 AM Referred By: Confirmed By:JEREMÍAS ORANTES MD
--- NOTE | 2017-10-28 09:53 | CONS ---
ORTHOPEDIC CONSULTATION/[facility] DATE OF CONSULTATION: 10/28/2017 The patient is a 62-year-old female well known to me, status post right total knee replacement by me approximately 3 weeks ago. The physical therapist was examining the patient and thought the patient may have an infection or a clot and was sent to the emergency room at [facility]. Medical doctor was consulted and recommended that the patient be admitted to the hospital. On physical exam, the patient's incision is clean and dry. Slight erythema at the edges which is normal at this period of time. Postoperative intervention range of motion is 0 to 80 degrees . Calves are soft and nontender. Negative Homans sign and otherwise neurovascularly intact. A duplex that was done showed no evidence of a DVT. Systemic cell count revealed no increase of white blood cell count. IMPRESSION: Physiological examination of the patient and a normal postoperative right total knee replacement. PLAN: The patient can be discharged. No necessity for antibiotics. She should continue physical therapy and follow up in my office. ILENE GARCIA M.D. [id number]
[2017-10-28] MEDS ORDERED: HEPARIN NA (PORCINE) 5,000 UNITS/ML 1ML VIAL SQ SCH (10:00)
--- NOTE | 2017-10-28 10:13 | CON.ID ---
Consult Consult Specialty:: Infectious disease Referred by:: Erika Madrigal Reason for Consultation:: possible RT TKR infection - History of Present Illness Chief Complaint: RIght knee pain, erythema and warmth History of Present Illness: The patient is a 62 yo f w/ PMH HTN, hypothyroidism who underwent RT TKR on who presented to the ED c/o a 3 day hx of swelling, redness and warmth to her right knee. The patient was previously healing well when she noticed that her knee appeared more erythematous than it was before. The patient also endorses b/l leg swelling, worse on the right. Patient denies increased pain or trauma to the area. Patient denies any fevers, but does endorse shaking chills over the last 2 days. - History Source History Provided By: Patient Limitations to Obtaining History: No Limitations - Past Medical History Cardio/Vascular: Yes: HTN Pulmonary: Yes: Asthma Gastrointestinal: Yes: GERD, Other (Obesity, S/P gastric banding 7 years ago.) Endocrine: Yes: Hypothyroidism - Past Surgical History Past Surgical History: Yes: Bariatric Surgery (Gastric banding) - Alcohol/Substance Use Hx Alcohol Use: No - Smoking History Smoking history: Never smoked Have you smoked in the past 12 months: No Aproximately how many cigarettes per day: 0 Home Medications - Allergies Allergies/Adverse Reactions: Allergies Allergy/AdvReac Type Severity Reaction Status Date / Time No Known Drug Allergies Allergy Verified 10/27/17 17:58 - Home Medications Home Medications: Ambulatory Orders Albuterol Sulfate Inhaler - [Ventolin HFA Inhaler -] 1 - 2 inh PO QID PRN Levothyroxine [Synthroid -] 125 mcg PO DAILY 10/05/17 Aspirin [ASA -] 325 mg PO DAILY@0800 tablet 10/11/17 Oxycodone HCl/Acetaminophen [Percocet 5-325 mg Tablet] 1 - 2 tab PO Q6H #50 tab MDD 8 10/11/17 Review of Systems - Review of Systems Constitutional: reports: Chills. denies: Fever, Weakness Cardiovascular: reports: Edema. denies: Chest Pain, Palpitations, Shortness of Breath Gastrointestinal: reports: Constipation. denies: Abdominal Pain, Diarrhea Musculoskeletal: denies: Decreased ROM, Joint Pain Integumentary: reports: Erythema, Incision Physical Exam Vital Signs: Vital Signs Temperature 97.9 F 10/28/17 05:26 Pulse Rate 60 10/28/17 05:26 Respiratory Rate 20 10/28/17 05:26 Blood Pressure 126/63 10/28/17 05:26 O2 Sat by Pulse Oximetry (%) 95 10/28/17 05:26 Constitutional: Yes: Well Nourished, No Distress, Calm Cardiovascular: Yes: Regular Rate and Rhythm, S1, S2. No: JVD, Gallop, Murmur, Rub Respiratory: Yes: Regular, CTA Bilaterally Gastrointestinal: Yes: Normal Bowel Sounds, Soft. No: Distention, Tenderness Extremities: Yes: Other (right knee reveals a surgical scar which appears to be healing well. Along the distal 1/3 of the scare, there is erythema and a small amount of swelling on either side of the surgical wound. No confluence or drainage seen or expressed. Patient has full range of motion of the joint. Joint is nontender.) Edema: Yes Edema: LLE: 2+, RLE: 2+ Integumentary: Yes: Erythema, Incision Wound/Incision: Yes: Clean/Dry, Well Approximated, Open to air, Reddened. No: Draining Neurological: Yes: Alert, Oriented Psychiatric: Yes: Alert, Oriented Labs: CBC, BMP 10/28/17 07:45 10/28/17 07:45 Imaging - Results Chest X-ray: Report Reviewed, Image Reviewed Assessment/Plan The patient is a 62 yo f w/ PMH HTN, Hypothyroid, right TKR comes into the ed c/ o worsening redness of her right leg as well as shaking chills. -It is unclear whether the patient's shaking chills are 2/2 to infection as she has been afebrile and does not endorse fever at home. -Per the patient, her leg was more erythematous yesterday and has since improved after ABX last night. Erythema and swelling not impressive this AM. -Patient still has full ROM of the RLE and does not endorse increased pain at the joint. -Ortho documented that this appears to be normal post op healing. -would observe off of ABX for now and f/u BCx -Case d/w Dr. Duran.
[2017-10-28 10:59] VITALS: BP 144/72; PULSE 62; TEMP 98.1
--- NOTE | 2017-10-28 12:52 | PN ---
Teaching Attending Note Name of Resident: Gal Tanner ATTENDING PHYSICIAN STATEMENT I saw and evaluated the patient. I reviewed the resident's note and discussed the case with the resident. I agree with the resident's findings and plan as documented. SUBJECTIVE: POD #17 s/p TKR doing well- ambulating independently, less knee pain noted at PT yesterday to have some erythema at the incision and leg swelling and sent to ED no fevers, no antibiotics at home notes some chills over last 48 hours no cough or URI no n/v no diarrhea has self d/jo-ann percocet taking motrin prn no fevers OBJECTIVE: Vital Signs Period Temp Pulse Resp BP Sys/Mayes Pulse Ox Last 24 Hr 97.9 F-99.4 F 60-75 20-24 126-146/63-78 95-95 cor-rrr lungs clear abd soft,nt ext minimal erythema surrounding veritcal TKR incision no drainage +minimal edema CBC, BMP 10/28/17 07:45 10/28/17 07:45 blood cultures pending ASSESSMENT AND PLAN: no signs cellulitis or septic arthritis at this time would agree with ortho that knee findings are c/w postop not sure what to make of chills- no localizing findings normal WBC, no fevers would f/u blood cultures would check esr/crp observing off antibiotics appears appropriate at this time d/w patient Problem List - Problems (1) Wound cellulitis Code(s): L03.90 - CELLULITIS, UNSPECIFIED (2) S/P TKR (total knee replacement) Code(s): Z96.659 - PRESENCE OF UNSPECIFIED ARTIFICIAL KNEE JOINT
--- NOTE | 2017-10-28 13:40 | DS ---
Physical Examination Vital Signs: Vital Signs Temperature 98.1 F 10/28/17 09:00 Pulse Rate 62 10/28/17 09:00 Respiratory Rate 20 10/28/17 09:00 Blood Pressure 144/72 10/28/17 09:00 O2 Sat by Pulse Oximetry (%) 95 10/28/17 05:26 Constitutional: Yes: Calm Cardiovascular: Yes: Regular Rate and Rhythm, S1, S2 Respiratory: Yes: CTA Bilaterally Gastrointestinal: Yes: Normal Bowel Sounds, Soft Musculoskeletal: Yes: Other (TKR slight erythema around the incision slight edema) Neurological: Yes: Alert, Oriented Labs: CBC, BMP 10/28/17 07:45 10/28/17 07:45 Discharge Summary Reason For Visit: WOUND CELLULITIS Current Active Problems S/P TKR (total knee replacement) (Acute) Wound cellulitis (Acute) Hospital Course: CHIEF COMPLAINT: right knee redness and swelling PCP: Shea HISTORY OF PRESENT ILLNESS: This is a 62 year old female with a past medical history significant for R TKR who presented to the ED with swelling and redness to LRLE. Pt states the redness started 3 days ago and she has not been able to wear her MICHELLE stocking as it no longer fits. ER course was notable for: (1) US neg for DVT Recent Travel: pt denies PAST MEDICAL HISTORY: HTN (off meds), hyopthyroid, asthma, GERD PAST SURGICAL HISTORY: R TKR 10/11/17 R knee arthroscopy 1999 choecystectomy lap band 2002 Social History: Smoking: pt denies Alcohol: rarely, last drank 6 mo ago Drugs: pt denies Doppler of leg done no dvt seen by ortho no need for abx normal healing sen by ID no fever normal WBC count no abx at this time to go home Condition: Stable - Instructions Referrals: Diego Valdivia MD [Primary Care Provider] - Disposition: HOME - Home Medications Comprehensive Discharge Medication List: Ambulatory Orders Albuterol Sulfate Inhaler - [Ventolin HFA Inhaler -] 1 - 2 inh PO QID PRN Levothyroxine [Synthroid -] 125 mcg PO DAILY 10/05/17 Aspirin [ASA -] 325 mg PO DAILY@0800 tablet 10/11/17 Oxycodone HCl/Acetaminophen [Percocet 5-325 mg Tablet] 1 - 2 tab PO Q6H #50 tab MDD 8 10/11/17
== END 2017-10-28 14:49 | disposition home or self-care (01) ==
LOC: JER 17:52 → JERBED 20:01 → INTOOBSV 20:01 → J8W 10-28 00:16
PROVIDERS: ADMIT Family Medicine; ATTEND Family Medicine
PROC: 3E03329 Introduction of Other Anti-infective into Peripheral Vein, Percutaneous Approach (ICD-10-PCS; principal; 2017-10-27)
PROC: 3E013GC Introduction of Other Therapeutic Substance into Subcutaneous Tissue, Percutaneous Approach (ICD-10-PCS; 2017-10-27)
DX: L03.115 Cellulitis of right lower limb (principal); I10 Essential (primary) hypertension; E03.9 Hypothyroidism, unspecified; J45.909 Unspecified asthma, uncomplicated; K21.9 Gastro-esophageal reflux disease without esophagitis; E66.9 Obesity, unspecified; Z68.43 Body mass index [BMI] 50.0-59.9, adult; Z96.651 Presence of right artificial knee joint; Z79.82 Long term (current) use of aspirin; Z98.84 Bariatric surgery status
CPT/HCPCS: 36415; 71045-TC-FY; 80048; 80053; 83735; 84100; 85025; 85651; 86140; 87040; 93005; 93010; 93971-TC; 99285-25; G0378; J1644

== ENCOUNTER 2019-08-03 07:09 | Day surgery (SDC) | payer BC, OTHER ==
[2019-08-02 10:54] VITALS: BMI 47.2
[2019-08-03] MEDS ORDERED: TETRACAINE/BENZOCAINE/BUTAMBEN 20 GM SPR TP ONE (08:29)
[2019-08-03 11:55] VITALS: BP 131/60; PULSE 65; TEMP 97.7
--- NOTE | 2019-08-07 16:30 | PATH ---
Surgical Pathology Report Patient Name: CORBIN NUNN [facility]. Rec. #: [id number] /Age/Gender: 1955 (Age: 64) / F Account: [id number] Location: U-ENDOSCOPY Taken: 08/03/2019 Received: 08/03/2019 Reported: 08/07/2019 Physicians: ZABRINA HERNANDEZ Specimen(s) Received A: DUODENUM B: ANTRUM C: DISTAL ESOPHAGUS D: DESCENDING COLON POLYP #1 E: DESCENDING COLON POLYP #2 F: SIGMOID POLYP Clinical History GERD, epigastric pain, colon screening Postoperative diagnosis: GERD, colon polyps, hemorrhoids, diverticulosis Final Diagnosis A. DUODENUM, BIOPSY: DUODENAL MUCOSA WITHOUT SIGNIFICANT PATHOLOGIC FINDINGS. B. STOMACH, ANTRUM, BIOPSY: GASTRIC ANTRAL MUCOSA WITH MILD CHRONIC GASTRITIS. IMMUNOHISTOCHEMICAL STAIN FOR H. PYLORI IS NEGATIVE. C. DISTAL ESOPHAGUS, BIOPSY: SQUAMOUS MUCOSA WITH CHANGES OF MILD REFLUX TYPE ESOPHAGITIS. D. DESCENDING COLON, POLYP #1, POLYPECTOMY: TUBULAR ADENOMA. E. DESCENDING COLON, POLYP #2, POLYPECTOMY TUBULAR ADENOMA. F. SIGMOID COLON, POLYP, BIOPSY: HYPERPLASTIC POLYP. Immunohistochemical stains performed at [place], [place] ([id number]) and interpreted at [facility]. Positive and negative controls (internal if applicable) show appropriate results. Electronically Signed Devi June M.D. Gross Description A. Received in formalin, labeled "biopsy duodenum" are 2 jensen, irregular portions of soft tissue averaging 0.3 cm. in greatest dimension. The specimens are submitted in toto in one cassette. B. Received in formalin, labeled "biopsy antrum" are 2 ejnsen, irregular portions of soft tissue measuring 0.2 and 0.4 cm. in greatest dimension. The specimens are submitted in toto in one cassette. C. Received in formalin, labeled "biopsy distal esophagus" are 2 jensen, irregular portions of soft tissue measuring 0.3 and 0.5 cm. in greatest dimension. The specimens are submitted in toto in one cassette. D. Received in formalin, labeled "polyp descending colon" is a jensen, irregular portion of soft tissue measuring 0.3 cm. in greatest dimension. The specimen is submitted in toto in one cassette. E. Received in formalin, labeled "polyp descending colon #2" is a jensen, irregular portion of soft tissue measuring 0.2 cm. in greatest dimension. The specimen is submitted in toto in one cassette. F. Received in formalin, labeled "biopsy sigmoid polyp" is a jensen, irregular portion of soft tissue measuring 0.2 cm. in greatest dimension. The specimen is submitted in toto in one cassette. 08/03/2019 [facility]08/03/2019
== END 2019-08-03 09:25 | disposition home or self-care (01) ==
LOC: JASU-ENDO 07:09
PROVIDERS: ATTEND Internal Medicine Gastroenterology
PROC: 0DBN8ZX Excision of Sigmoid Colon, Via Natural or Artificial Opening Endoscopic, Diagnostic (ICD-10-PCS; 2019-08-03)
PROC: 0DB98ZX Excision of Duodenum, Via Natural or Artificial Opening Endoscopic, Diagnostic (ICD-10-PCS; 2019-08-03)
PROC: 0DB68ZX Excision of Stomach, Via Natural or Artificial Opening Endoscopic, Diagnostic (ICD-10-PCS; 2019-08-03)
PROC: 0DB38ZX Excision of Lower Esophagus, Via Natural or Artificial Opening Endoscopic, Diagnostic (ICD-10-PCS; 2019-08-03)
PROC: 0DBM8ZX Excision of Descending Colon, Via Natural or Artificial Opening Endoscopic, Diagnostic (ICD-10-PCS; principal; 2019-08-03 08:30)
DX: Z12.11 Encounter for screening for malignant neoplasm of colon (principal); D12.4 Benign neoplasm of descending colon; D12.5 Benign neoplasm of sigmoid colon; K29.50 Unspecified chronic gastritis without bleeding; K21.0 Gastro-esophageal reflux disease with esophagitis; K57.30 Diverticulosis of large intestine without perforation or abscess without bleeding; K64.8 Other hemorrhoids; I10 Essential (primary) hypertension; E03.9 Hypothyroidism, unspecified; E66.01 Morbid (severe) obesity due to excess calories; Z68.42 Body mass index [BMI] 45.0-49.9, adult; Z87.11 Personal history of peptic ulcer disease; M81.0 Age-related osteoporosis without current pathological fracture; J45.20 Mild intermittent asthma, uncomplicated; Z90.710 Acquired absence of both cervix and uterus; Z98.84 Bariatric surgery status; Z96.651 Presence of right artificial knee joint; Z85.41 Personal history of malignant neoplasm of cervix uteri
CPT/HCPCS: 88305-TC

== ENCOUNTER 2020-04-29 04:47 | Day surgery (SDC) | payer BC, OTHER ==
[2020-04-28 12:57] VITALS: BMI 47.2
[2020-04-29] MEDS ORDERED: VASOPRESSIN 20 UNITS/ML VIAL IV ONE (09:36)
[2020-04-29] MEDS ORDERED: LIDOCAINE HCL/PF 2% SDV 5ML VIAL ONE ×2 (10:26→10:44)
[2020-04-29] MEDS ORDERED: PROPOFOL 20 ML ONE ×3 (10:27→10:44)
[2020-04-29] MEDS ORDERED: MIDAZOLAM HCL 2 MG/2 ML SINGLE DOSE VIAL ONE (10:27)
[2020-04-29] MEDS ORDERED: ceFAZolin SODIUM 1 GM VIAL IVPB ONE (10:40)
[2020-04-29] MEDS ORDERED: ceFAZolin SODIUM 1 GM VIAL ONE (10:44)
[2020-04-29] MEDS ORDERED: LIDOCAINE 1%/EPI 1:100000 (50 ML MULTI DOSE VIAL) ONE ×2 (10:49→10:54)
[2020-04-29] MEDS ORDERED: LIDOCAINE 1%/EPI 1:100000 (20 ML MULTI DOSE VIAL) IJ ONE (10:50)
[2020-04-29] MEDS ORDERED: DEXAMETHASONE SOD PHOSPHATE 4 MG/1 ML VIAL ONE (11:00)
[2020-04-29] MEDS ORDERED: oxyCODONE HCL 5 MG TABLET PO PRN (11:19)
[2020-04-29] MEDS ORDERED: IBUPROFEN 800 MG/8 ML IJ IVPB PRN (11:19)
[2020-04-29] MEDS ORDERED: ONDANSETRON 4 MG/2 ML VIAL IVPUSH PRN (11:19)
[2020-04-29] MEDS ORDERED: LACTATED RINGERS SOLUTION 1,000 ML IV SCH (11:30)
[2020-04-29] MEDS ORDERED: ELECTROLYTE-148 SOLN 1,000 ML IV SCH (11:30)
[2020-04-29 15:39] VITALS: BP 158/72; PULSE 74; TEMP 98
== END 2020-04-29 16:26 | disposition home or self-care (01) ==
LOC: JASU-SURG 04:47
PROVIDERS: ATTEND Urology
PROC: 0TSD0ZZ Reposition Urethra, Open Approach (ICD-10-PCS; principal; 2020-04-29 09:30)
DX: N39.3 Stress incontinence (female) (male) (principal)
CPT/HCPCS: 57288; C1771; 94760

== ENCOUNTER 2021-04-18 09:23 | Emergency (ER) | payer BC, OTHER ==
[2021-04-18 09:53] VITALS: BP 165/84; PULSE 84; TEMP 98.4; BMI 47.2
[2021-04-18] MEDS ORDERED: LIDOCAINE 5% TOPICAL PATCH TP ONE (09:59)
[2021-04-18] MEDS ORDERED: METHOCARBAMOL 750 MG TABLET PO ONE (10:00)
[2021-04-18] MEDS ORDERED: METHOCARBAMOL 500 MG TABLET PO ONE (10:21)
[2021-04-18] MEDS ORDERED: KETOROLAC TROMETHAMINE 30 MG/1 ML VIAL IM ONE (10:21)
[2021-04-18] MEDS ORDERED: diazePAM 5 MG TABLET PO ONE (10:32)
[2021-04-18] MEDS ORDERED: LIDOCAINE 5% TOPICAL PATCH ONE (10:58)
[2021-04-18] MEDS ORDERED: diazePAM 5 MG TABLET ONE (10:58)
[2021-04-18] MEDS ORDERED: KETOROLAC TROMETHAMINE 30 MG/1 ML VIAL ONE (10:59)
[2021-04-18] MEDS ORDERED: LIDOCAINE PATCH REMOVAL MC ONE (22:00)
== END 2021-04-18 12:13 | disposition home or self-care (01) ==
LOC: JER 09:23
PROC: 3E023GC Introduction of Other Therapeutic Substance into Muscle, Percutaneous Approach (ICD-10-PCS; principal; 2021-04-18)
DX: M54.2 Cervicalgia (principal)
CPT/HCPCS: 99284-25

== ENCOUNTER 2022-02-02 06:42 | Day surgery (SDC) | payer BC, OTHER ==
[2022-01-26 13:10] VITALS: BMI 47.2
[~2022-02-02 06:42] MED LIST: VANCOMYCIN 1,000 MG VIAL (RESTRICTED TO ID ONLY) IVPB ONE; ceFAZolin SODIUM 1 GM VIAL IVPB ONE
[2022-02-02] MEDS ORDERED: ceFAZolin SODIUM 1 GM VIAL ONE ×2 (07:46→09:57)
[2022-02-02] MEDS ORDERED: VANCOMYCIN 1,000 MG VIAL (RESTRICTED TO ID ONLY) ONE (07:46)
[2022-02-02] MEDS ORDERED: ONDANSETRON 4 MG/2 ML VIAL IVPUSH PRN (07:52)
[2022-02-02] MEDS ORDERED: CELECOXIB 200 MG CAPSULE PO ONE (07:52)
[2022-02-02] MEDS ORDERED: TRANEXAMIC ACID 1000 MG/10 ML VIAL IVPUSH ONE (07:52)
[2022-02-02] MEDS ORDERED: CEFAZOLIN SODIUM 2 GM in DEXTROSE 5%-WATER - 50 ML IVPB ONE (07:52)
[2022-02-02] MEDS ORDERED: LACTATED RINGERS SOLUTION 1,000 ML IV SCH (08:00)
[2022-02-02] MEDS ORDERED: ALBUTEROL SO4 HFA INHALER IH PRN (08:00)
[2022-02-02] MEDS ORDERED: MIDAZOLAM HCL 2 MG/2 ML SINGLE DOSE VIAL ONE ×2 (08:10→10:03)
[2022-02-02] MEDS ORDERED: SODIUM CHLORIDE 0.9% P/F 10 ML VIAL IJ ONE (08:10)
[2022-02-02] MEDS ORDERED: BUPIVACAINE HCL/PF 0.5% (5MG/ML) 10 ML VIAL ONE (08:10)
[2022-02-02] MEDS ORDERED: BUPIVACAINE LIPOSOME/PF (EXPAREL) 266 MG/20 ML VIAL ONE (08:10)
[2022-02-02] MEDS ORDERED: ceFAZolin SODIUM 1 GM VIAL IVPB ONE ×3 (09:52→11:23)
[2022-02-02] MEDS ORDERED: TRANEXAMIC ACID 1000 MG/10 ML VIAL ONE (09:57)
[2022-02-02] MEDS ORDERED: ONDANSETRON 4 MG/2 ML VIAL ONE (09:57)
[2022-02-02] MEDS ORDERED: PATIENT'S OWN MEDICATION (NON-FORMULARY) (Fluticasone Propionate [Flovent Diskus] 50 MCG B IH SCH (10:00)
[2022-02-02] MEDS ORDERED: PROPOFOL 20 ML ONE (11:06)
[2022-02-02] MEDS ORDERED: VANCOMYCIN 1,000 MG VIAL (RESTRICTED TO ID ONLY) IVPB ONE (11:24)
[2022-02-02] MEDS ORDERED: oxyCODONE HCL 5 MG TABLET PO PRN (12:21)
[2022-02-02] MEDS ORDERED: FENTANYL CITRATE/PF 50 MCG/ML VIAL ONE ×2 (12:32→12:56)
[2022-02-02] MEDS ORDERED: KETOROLAC TROMETHAMINE 30 MG/1 ML VIAL ONE (13:02)
[2022-02-02] MEDS ORDERED: oxyCODONE HCL 5 MG TABLET ONE (13:11)
[2022-02-02] MEDS ORDERED: ACETAMINOPHEN 500 MG TABLET (FP) ONE (13:12)
[2022-02-02] MEDS: ACETAMINOPHEN 500 MG TABLET (FP) PO SCH ×3 (13:15→18:19)
[2022-02-02] MEDS: KETOROLAC TROMETHAMINE 30 MG/1 ML VIAL IVPUSH SCH ×2 (15:42→18:10)
[2022-02-02] MEDS: MULTIVITAMINS (DAILY MVI) TABLET (FP) PO SCH (15:43)
[2022-02-02] MEDS: PANTOPRAZOLE 40 MG TABLET PO SCH (15:43)
[2022-02-02] MEDS: LISINOPRIL 20 MG TABLET PO SCH (15:43)
[2022-02-02] MEDS: SENNOSIDES/DOCUSATE COMBO (SENNA PLUS) TABLET (UD) PO SCH ×2 (15:43→21:52)
[2022-02-02] MEDS: oxyCODONE HCL 5 MG TABLET PO PRN ×2 (16:09→21:51)
[2022-02-02] MEDS: CEFAZOLIN SODIUM 2 GM in DEXTROSE 5%-WATER - 50 ML IVPB SCH (18:12)
[2022-02-03] MEDS: ACETAMINOPHEN 500 MG TABLET (FP) PO SCH ×4 (00:14→18:24)
[2022-02-03] MEDS: CEFAZOLIN SODIUM 2 GM in DEXTROSE 5%-WATER - 50 ML IVPB SCH ×2 (02:11→09:55)
[2022-02-03 08:09] LABS: HEMATOCRIT 34.2 % (32.4-45.2); HEMOGLOBIN 11.3 G/dL (10.7-15.3); MCH 29.1 pg (25.7-33.7); MEAN CELL VOLUME 88.2 fl (80-96); MEAN PLT VOLUME 9.3 fl (7.5-11.1); PLATELET COUNT 223.6 10^3/uL (134-434); RBC 3.88 10^6/uL (3.60-5.2); RDW 15.2 % (11.6-15.6); WHITE BLOOD COUNT 9.9 10^3/uL (4.0-10.8)
[2022-02-03] MEDS: MULTIVITAMINS (DAILY MVI) TABLET (FP) PO SCH (09:47)
[2022-02-03] MEDS: PANTOPRAZOLE 40 MG TABLET PO SCH (09:47)
[2022-02-03] MEDS: ASPIRIN 325 MG TABLET PO SCH (09:47)
[2022-02-03] MEDS: LISINOPRIL 20 MG TABLET PO SCH (09:48)
[2022-02-03] MEDS: oxyCODONE HCL 5 MG TABLET PO PRN ×3 (09:48→18:24)
[2022-02-03] MEDS: SENNOSIDES/DOCUSATE COMBO (SENNA PLUS) TABLET (UD) PO SCH ×2 (09:52→21:22)
[2022-02-04] MEDS: ACETAMINOPHEN 500 MG TABLET (FP) PO SCH ×3 (03:06→13:09)
[2022-02-04] MEDS: oxyCODONE HCL 5 MG TABLET PO PRN ×2 (08:13→13:10)
[2022-02-04] MEDS: ASPIRIN 325 MG TABLET PO SCH (08:13)
[2022-02-04 08:17] LABS: HEMOGLOBIN 10.7 G/dL (10.7-15.3); MCH 30.5 pg (25.7-33.7); MCHC 34.4 g/dl (32.0-36.0); MEAN CELL VOLUME 88.7 fl (80-96); MEAN PLT VOLUME 9.6 fl (7.5-11.1); PLATELET COUNT 202.2 10^3/uL (134-434); RDW 15.2 % (11.6-15.6); WHITE BLOOD COUNT 10.9 10^3/uL (4.0-10.8)
[2022-02-04 09:52] VITALS: RESP 18
[2022-02-04] MEDS: PANTOPRAZOLE 40 MG TABLET PO SCH (10:40)
[2022-02-04] MEDS: LISINOPRIL 20 MG TABLET PO SCH (10:41)
[2022-02-04] MEDS: MULTIVITAMINS (DAILY MVI) TABLET (FP) PO SCH (10:41)
[2022-02-04] MEDS: SENNOSIDES/DOCUSATE COMBO (SENNA PLUS) TABLET (UD) PO SCH (10:41)
[2022-02-04 14:32] VITALS: BP 146/56; PULSE 74; TEMP 97.9
== END 2022-02-04 15:40 | disposition home health service (06) ==
LOC: FASUSAT 06:42 → FM/S 13:47 → FASUSAT 02-04 15:40
PROVIDERS: ATTEND Orthopaedic Surgery
PROC: 8E0YXBZ Computer Assisted Procedure of Lower Extremity (ICD-10-PCS; 2022-02-02)
PROC: 8E0Y0CZ Robotic Assisted Procedure of Lower Extremity, Open Approach (ICD-10-PCS; 2022-02-02)
PROC: 0SRD0J9 Replacement of Left Knee Joint with Synthetic Substitute, Cemented, Open Approach (ICD-10-PCS; principal; 2022-02-02 09:30)
DX: M17.12 Unilateral primary osteoarthritis, left knee (principal); I10 Essential (primary) hypertension
CPT/HCPCS: 20985; 27447; C1776; S2900; 36415; 73560-TC-LT-FY; 85027; 94760; 97010-GP; 97116-GP; 97162-GP; C1713

== ENCOUNTER 2024-11-26 05:33 | Day surgery (SDC) | payer OTHER ==
[2024-11-23 11:30] VITALS: BMI 45.3
[2024-11-26 14:59] VITALS: RESP 18
[2024-11-26] MEDS ORDERED: MIDAZOLAM HCL 2 MG/2 ML SINGLE DOSE VIAL ONE (15:53)
[2024-11-26 17:29] VITALS: BP 140/73; PULSE 70; TEMP 96.7
== END 2024-11-26 17:25 | disposition home or self-care (01) ==
LOC: JASU-SURG 05:33
PROVIDERS: ATTEND Urology
PROC: 0TF4XZZ Fragmentation in Left Kidney Pelvis, External Approach (ICD-10-PCS; principal; 2024-11-26 16:00)
DX: N20.0 Calculus of kidney (principal)